=== PATIENT | female | born 1975 | race American Indian/Alaskan Native ===

== ENCOUNTER 2017-11-07 17:12 | Emergency (ER) | payer BC, OTHER ==
[2017-11-07 17:12] VITALS: BMI 45.5
[2017-11-07 17:19] VITALS: BP 138/79; PULSE 100; RESP 18; TEMP 97.6; O2SAT 95
[2017-11-07 17:49] LABS: HCG,QUALITATIVE URINE NEGATIVE (NEGATIVE)
[2017-11-07 17:52] LABS: SQUAMOUS EPITHIAL 21 /hpf (0-5); URINE BILIRUBIN NEGATIVE (NEGATIVE); URINE BLOOD NEGATIVE (NEGATIVE); URINE CLARITY Hazy (Clear); URINE GLUCOSE (UA) NORMAL (Normal); URINE LEUKOCYTE ESTERASE 3+ Leu/uL (Negative); URINE PROTEIN 2+ mg/dL (NEGATIVE); URINE UROBILINOGEN NORMAL mg/dL (0.2-1.0)
[2017-11-07 17:58] LABS: URINE BACTERIA FEW (<OCC); URINE COLOR YELLOW (YELLOW)
--- NOTE | 2017-11-07 18:12 | C.PDOC ---
History Of Present Illness 42 year old female presents to the ED complaining of left flank pain associated with dysuria for 2 days. Patient also describes having cloudy urine. Took over- the-counter urine relief pills with slight improvement. Denies any fever, vaginal discharge, or vomiting. Time Seen by Provider: 11/07/17 17:22 Chief Complaint (Nursing): Female Genitourinary History Per: Patient History/Exam Limitations: no limitations Onset/Duration Of Symptoms: Days (x2) Current Symptoms Are (Timing): Still Present Associated Symptoms: Urinary Symptoms Past Medical History Reviewed: Historical Data, Nursing Documentation, Vital Signs Vital Signs: Last Vital Signs Temp 97.6 F 11/07/17 17:17 Pulse 100 H 11/07/17 17:17 Resp 18 11/07/17 17:17 BP 138/79 11/07/17 17:17 Pulse Ox 95 11/07/17 18:12 - Medical History PMH: Asthma, HTN Denies: Chronic Kidney Disease Surgical History: - [facility] Procedures D & C POST DELIVERY (11/20/14) Family History: States: Unknown Family Hx - Social History Hx Alcohol Use: Yes Hx Substance Use: No Review Of Systems Constitutional: Negative for: Fever Gastrointestinal: Positive for: Other (flank pain). Negative for: Vomiting Genitourinary: Positive for: Dysuria, Other (cloudy urine). Negative for: Hematuria, Vaginal Discharge Physical Exam - Physical Exam Appears: Well, Non-toxic, No Acute Distress Skin: Warm, Dry, No Rash Head: Atraumatic, Normacephalic Eye(s): bilateral: Normal Inspection Oral Mucosa: Moist Neck: Normal ROM Chest: Symmetrical Cardiovascular: Rhythm Regular Respiratory: Normal Breath Sounds, No Rales, No Rhonchi, No Wheezing Gastrointestinal/Abdominal: Bowel Sounds (active), Soft, No Tenderness, No Guarding Back: No CVA Tenderness, No Vertebral Tenderness Extremity: Bilateral: Atraumatic, Normal ROM Neurological/Psych: Oriented x3, Normal Speech ED Course And Treatment O2 Sat by Pulse Oximetry: 95 (RA) Pulse Ox Interpretation: Normal Medical Decision Making Medical Decision Making: Time: 17:22 Plan: * Urine preg * Urinalysis * Urine culture 18:09 Urine shows (+) bacteria. Patient given initial dose of Cipro, 500 mg PO in the ED. Patient is stable for discharge home. Counseled regarding diagnosis and provided with prescription for antibiotics. Disposition Counseled Patient/Family Regarding: Studies Performed, Diagnosis, Need For Followup, Rx Given - Disposition Disposition: HOME/ ROUTINE Disposition Time: 18:09 Condition: STABLE Additional Instructions: Take antibiotic twice daily and be sure to finish taking all of antibiotic. Drink plenty of fluids. If urine culture was performed, call back for results in 2-3 days for results to confirm antibiotic is treating UTI well. Prescriptions: Ciprofloxacin [Cipro] 1 tab PO BID #9 tab Instructions: Urinary Tract Infections in Adults Forms: Work/School/Gym Excuse, [facility] (Icelandic) - POA Present On Arrival: None - Clinical Impression Clinical Impression: UTI (urinary tract infection) - PA / DIRECTOR PEDIATRIC / Resident Statement MD/DO has reviewed & agrees with the documentation as recorded. - Scribe Statement The provider has reviewed the documentation as recorded by the Scribe (Tonia Vera) All medical record entries made by the Scribe were at my direction and personally dictated by me. I have reviewed the chart and agree that the record accurately reflects my personal performance of the history, physical exam, medical decision making, and the department course for this patient. I have also personally directed, reviewed, and agree with the discharge instructions and disposition.
== END 2017-11-07 18:40 | disposition home or self-care (01) ==
LOC: C.ER 17:12
DX: N39.0 Urinary tract infection, site not specified (principal); I10 Essential (primary) hypertension

== ENCOUNTER 2018-09-06 16:38 | Emergency (ER) | payer BC, OTHER ==
[2018-09-06 16:38] VITALS: BMI 45.5
[2018-09-06 16:58] VITALS: O2SAT 99
--- NOTE | 2018-09-06 17:23 | C.PDOC ---
History Of Present Illness 43 year old female presents to the emergency department with complaints of left- sided abdominal pain for the last two days with gradual onset, which she reports is worse when walking upright but is improved upon sitting. Patient denies nausea, vomiting, diarrhea, and constipation. Patient reports frequent belching, but otherwise reports a normal appetite as she tolerated PO today. Patient denies urinary symptoms, fever, chills. She was evaluated by her PMD Dr. Mcgowan earlier today who recommended her to come to ED for further evaluation. Patient has a history of hypertension and asthma, a surgical history of carpal tunnel release and cataract surgery, and denies smoking, drinking, and drug use in her social history. Patient's family history is positive for stroke, diabetes, and hypercholesterolemia. Time Seen by Provider: 09/06/18 17:16 Chief Complaint (Nursing): Abdominal Pain History Per: Patient History/Exam Limitations: no limitations Onset/Duration Of Symptoms: Days (2) Current Symptoms Are (Timing): Still Present Location Of Pain/Discomfort: Other (left-sided) Quality Of Discomfort: "Pain" Associated Symptoms: denies: Fever, Chills, Nausea, Vomiting, Diarrhea, Constipation, Urinary Symptoms Exacerbating Factors: Upright Position (walking) Alleviating Factors: Other (sitting) Past Medical History Reviewed: Historical Data, Nursing Documentation, Vital Signs Vital Signs: Last Vital Signs Temp 98.5 F 09/06/18 16:54 Pulse 98 H 09/06/18 16:54 Resp 18 09/06/18 16:54 BP 125/77 09/06/18 16:54 Pulse Ox 99 09/06/18 16:54 - Medical History PMH: Asthma, HTN Denies: Chronic Kidney Disease Surgical History: Other Surgeries: Carpal tunnel release, cataract surgery. - [facility] Procedures D & C POST DELIVERY (11/20/14) Family History: States: Stroke, Diabetes, Other Other Family History: hypercholesterolemia - Social History Hx Alcohol Use: Yes Hx Substance Use: No - Immunization History Hx Tetanus Toxoid Vaccination: No Hx Influenza Vaccination: Yes Hx Pneumococcal Vaccination: No Review Of Systems Except As Marked, All Systems Reviewed And Found Negative. Constitutional: Negative for: Fever, Chills Gastrointestinal: Positive for: Abdominal Pain. Negative for: Nausea, Vomiting, Diarrhea, Constipation Genitourinary: Negative for: Dysuria, Frequency, Incontinence Physical Exam - Physical Exam Appears: Non-toxic, In Acute Distress (mild painful distress) Skin: Warm, Dry Head: Atraumatic, Normacephalic Eye(s): bilateral: PERRL, EOMI Oral Mucosa: Moist Lips: Normal Appearing Neck: Normal ROM, Trachea Midline Chest: Symmetrical Cardiovascular: Rhythm Regular, No Murmur Respiratory: Normal Breath Sounds, No Accessory Muscle Use Gastrointestinal/Abdominal: Soft, Tenderness (LLQ), No Mass, No Distention, No Guarding, No Rebound Back: Normal Inspection, No CVA Tenderness Extremity: Normal ROM, No Deformity Neurological/Psych: Oriented x3, Normal Motor, Normal Sensation ED Course And Treatment - Laboratory Results Result Diagrams: 09/06/18 18:28 09/06/18 18:28 O2 Sat by Pulse Oximetry: 99 (RA) Pulse Ox Interpretation: Normal - CT Scan/US CT A/P Other Rad Studies (CT/US): Read By Radiologist, Radiology Report Reviewed CT/US Interpretation: EXAM: CT Abdomen and Pelvis with IV contrast. CLINICAL HISTORY: LLQ PAIN. TECHNIQUE: Axial computed tomography images of the abdomen and pelvis with oral and intravenous contrast. 0.00 mGy-cm. CONTRAST: With; OMNI 240 &; OMNI 240. COMPARISON: None provided. FINDINGS: LUNG BASES: The lung bases appear clear. No pleural effusions are seen. LIVER: Unremarkable. GALLBLADDER AND BILE DUCTS: The gallbladder appears within normal limits. No radioopaque gallstones are seen. No biliary ductal dilatation is evident. PANCREAS: Unremarkable. SPLEEN: Unremarkable. ADRENAL GLANDS: Unremarkable. KIDNEYS, URETERS, AND BLADDER: The kidneys appear within normal limits. There is no hydronephrosis or hydroureter. No urinary calculi are seen. STOMACH AND BOWEL: Note is made of inflammatory stranding surrounding trapped fat structure adjacent to the proximal sigmoid most consistent with epiploic appendagitis. There are no diverticula noted. The small and large bowel are unremarkable. APPENDIX: No evidence of acute appendicitis on CT examination. PERITONEUM: No free fluid. No free air. LYMPH NODES: No lymphadenopathy is evident. REPRODUCTIVE: 3 cm anterior fundal fibroid is seen. Normal ovaries are unremarkable. VASCULATURE: No evidence of abdominal aortic aneurysm. BONES: No aggressive appearing osseous lesion. No acute osseous pathology evident. IMPRESSION: 1. Epiploic appendagitis adjacent to the proximal sigmoid colon. 2. Fibroid uterus. Medical Decision Making Medical Decision Making: Plan: CT Abdomen and Pelvis Chemistry Bloodwork Pepcid 20mg IVP NaCl IV Fluids Toradol 15mg IVP HCG Qualitative Urine Urinalysis Impression: LLQ Abdominal Pain Differential Diagnoses: Colitis, Diverticulitis, Enteritis, Cystitis. Disposition Discussed With Dr.: Angela Mcgowan Counseled Patient/Family Regarding: Studies Performed, Diagnosis - Disposition Referrals: Angela Mcgowan MD [Staff Provider] - Disposition: HOME/ ROUTINE Disposition Time: 21:50 Condition: STABLE Additional Instructions: Epiploic appandigitis is when a piece of fatty tissue on your colon gets inflamed. It is not a serious condition but can cause pain. Please rest and stay well hydrated until the inflammation improved. Followup with Dr Mcgowan early next week and continue all your regular medications as prescribed. Prescriptions: RX: Ibuprofen [Motrin Tab] 600 mg PO Q8 PRN #30 tab PRN Reason: Pain, Moderate (4-7) RX: traMADol [Ultram] 50 mg PO TID #15 tab Instructions: Acute Abdomen (Belly Pain), Adult (DC) Forms: Work Excuse - Clinical Impression Clinical Impression: Abdominal pain, Epiploic appendagitis - Scribe Statement The provider has reviewed the documentation as recorded by the Scribe (Venkata Dunne) Provider Attestation: All medical record entries made by the Scribe were at my direction and personally dictated by me. I have reviewed the chart and agree that the record accurately reflects my personal performance of the history, physical exam, medical decision making, and the department course for this patient. I have also personally directed, reviewed, and agree with the discharge instructions and disposition.
[2018-09-06] MEDS ORDERED: Iohexol 240 (50 ml) PO STA (17:36)
[2018-09-06] MEDS ORDERED: Sodium Chloride 0.9% 1,000 ML IV SCH (17:45)
[2018-09-06 18:37] LABS: BASO # 0.1 K/uL (0.0-0.2); BASO % 0.6 % (0.0-2.0); EOS # 0.2 K/uL (0.0-0.7); EOS % 2.3 % (0.0-4.0); HEMOGLOBIN 13.1 g/dL (11.0-16.0); LYMPH # 2.3 K/uL (1.0-4.3); LYMPH % 26.8 % (20.0-40.0); MEAN CELL VOLUME 88.1 fL (81.0-99.0); MEAN CORPUSCULAR HEMOGLOBIN 29.8 pg (27.0-31.0); MEAN CORPUSCULAR HGB CONC 33.8 g/dL (33.0-37.0); MEAN PLATELET VOLUME 7.8 fL (7.2-11.7); MONO # 0.5 K/uL (0.0-0.8); NEUT # 5.6 K/uL (1.8-7.0); NEUT % 64.3 % (50.0-75.0); NRBC % 0.1 % (0.0-2.0); RBC 4.4 Mil/uL (3.80-5.20); RED CELL DISTRIBUTION WIDTH 13.4 % (11.5-14.5); WHITE BLOOD COUNT 8.7 K/uL (4.8-10.8)
[2018-09-06 18:47] LABS: ALB/GLOB RATIO 1.4 (1.0-2.1); ALBUMIN 4.1 g/dL (3.5-5.0); ALT/SGPT 30 U/L (9-52); AST/SGOT 16 U/L (14-36); BLOOD UREA NITROGEN 11 mg/dL (7-17); CALCIUM 8.8 mg/dl (8.6-10.4); GFR NON-AFRICAN AMERICAN > 60; LIPASE 75 U/L (23-300)
[2018-09-06] MEDS ORDERED: Potassium Chloride 20 mEq ER Tab PO STA (18:56)
[2018-09-06 18:57] LABS: INR 1.1; PROTHROMBIN TIME 11.9 SECONDS (9.7-12.2)
[2018-09-06] MEDS ORDERED: Iohexol 240 (50 ml) ONE (19:00)
[2018-09-06] MEDS ORDERED: Sodium Chloride 0.9% 1,000 ML ONE (19:00)
[2018-09-06 19:12] LABS: SQUAMOUS EPITHIAL 4 /hpf (0-5); URINE BACTERIA RARE (<OCC); URINE BILIRUBIN NEGATIVE (NEGATIVE); URINE BLOOD NEGATIVE (NEGATIVE); URINE CLARITY Clear (Clear); URINE COLOR Yellow (YELLOW); URINE GLUCOSE (UA) NORMAL (Normal); URINE LEUKOCYTE ESTERASE NEG Leu/uL (Negative); URINE PROTEIN NEGATIVE (NEGATIVE); URINE UROBILINOGEN NORMAL mg/dL (0.2-1.0)
[2018-09-06 19:15] LABS: HCG,QUALITATIVE URINE NEGATIVE (NEGATIVE)
[2018-09-06] MEDS ORDERED: Iohexol 300 100 ML IJ ONE (19:42)
[2018-09-06] MEDS ORDERED: Potassium Chloride 20 mEq ER Tab PO ONE (19:55)
[2018-09-06 21:16] VITALS: BP 131/69; PULSE 81; RESP 20; TEMP 97
--- NOTE | 2018-09-07 07:55 | CT ---
CT abdomen and pelvis HISTORY: Left lower quadrant abdominal pain. COMPARISON: None available. TECHNIQUE: Multiple contiguous axial images were performed through the abdomen and pelvis with the use of intravenous contrast. Subsequently, sagittal and coronal reformatted images were obtained. Findings: Lung bases are clear. No pleural or pericardial effusion. Mild fatty infiltration of the liver. Contracted gallbladder. Spleen is preserved. Adrenal glands are preserved. Pancreas is preserved. Upper abdominal bowel is preserved. Right kidney: 1.2 centimeter low-attenuation lesion in the upper pole of the right kidney demonstrating a Hounsfield unit attenuation of 11 suggestive for a cyst. Left Kidney: No calculi or hydronephrosis. Urinary bladder is preserved. Heterogeneous possible fibroid uterus and bilateral adnexa. Prominence of the left adnexa measuring up to 4.4 centimeters. Correlation with pelvic ultrasound may be helpful if clinically indicated. Evaluation of the lower abdominal bowel demonstrates a twisted epiploic appendage at the level of the proximal sigmoid colon best seen on series 3, image 113 measuring up to 3.4 centimeters with associated fat stranding in the mesenteric fat suggestive for a twisted acute epiploic appendagitis. Moderate fecal retention in the colon. Appendix is grossly preserved. Few shotty para-aortic and inguinal lymph nodes. Few shotty mesenteric lymph nodes. Degenerative changes in the spine and hips. Prominent posterior disc osteophyte complex at the L5-S1. Impression: Evaluation of the lower abdominal bowel demonstrates a twisted epiploic appendage at the level of the proximal sigmoid colon best seen on series 3, image 113 measuring up to 3.4 centimeters with associated fat stranding in the mesenteric fat suggestive for a twisted acute epiploic appendagitis. A preliminary report was generated at 9:39 p.m. on 09/06/[address] John Yan from [employer].
== END 2018-09-06 22:07 | disposition home or self-care (01) ==
LOC: C.ER 16:38 → EEVIPCON 16:38 → C.ER 22:07
DX: K63.89 Other specified diseases of intestine (principal); R10.32 Left lower quadrant pain
CPT/HCPCS: 74177; 80053; 81001; 83605; 83690; 84703; 85025; 85610; 85730; 96361; 96374; 96375; 99285; J1885; J7030; Q9966; Q9967

== ENCOUNTER 2018-09-24 10:30 | Inpatient (IN) | payer BC ==
[2018-09-24 10:30] VITALS: BMI 45.5
[2018-09-24] MEDS ORDERED: Sodium Chloride 0.9% 1,000 ML IV ONE (11:41)
[2018-09-24 11:56] LABS: BASO % 0.4 % (0.0-2.0); EOS # 0.3 K/uL (0.0-0.7); EOS % 2.8 % (0.0-4.0); HEMOGLOBIN 13.3 g/dL (11.0-16.0); LYMPH # 1.5 K/uL (1.0-4.3); LYMPH % 13.6 % (20.0-40.0); MEAN CELL VOLUME 89.2 fL (81.0-99.0); MEAN CORPUSCULAR HEMOGLOBIN 30.1 pg (27.0-31.0); MEAN CORPUSCULAR HGB CONC 33.8 g/dL (33.0-37.0); MONO # 0.6 K/uL (0.0-0.8); NEUT # 8.8 K/uL (1.8-7.0); NEUT % 78.2 % (50.0-75.0); RBC 4.41 Mil/uL (3.80-5.20); RED CELL DISTRIBUTION WIDTH 13.4 % (11.5-14.5); WHITE BLOOD COUNT 11.2 K/uL (4.8-10.8)
[2018-09-24 12:14] LABS: ALB/GLOB RATIO 1.5 (1.0-2.1); ALBUMIN 4.4 g/dL (3.5-5.0); ALT/SGPT 28 U/L (9-52); AST/SGOT 25 U/L (14-36); BLOOD UREA NITROGEN 8 mg/dL (7-17); CALCIUM 8.7 mg/dl (8.6-10.4); GFR NON-AFRICAN AMERICAN > 60; LIPASE 46 U/L (23-300)
[2018-09-24 12:45] LABS: SQUAMOUS EPITHIAL 1 /hpf (0-5); URINE BACTERIA RARE (<OCC); URINE BILIRUBIN NEGATIVE (NEGATIVE); URINE BLOOD NEGATIVE (NEGATIVE); URINE CLARITY Clear (Clear); URINE COLOR Straw (YELLOW); URINE GLUCOSE (UA) NORMAL (Normal); URINE LEUKOCYTE ESTERASE NEG Leu/uL (Negative); URINE PROTEIN NEGATIVE (NEGATIVE); URINE UROBILINOGEN NORMAL mg/dL (0.2-1.0)
--- NOTE | 2018-09-24 13:41 | C.PDOC ---
History Of Present Illness 43 y/o female presents to the ER complaining of intermittent right sided abdominal pain which has been present since yesterday. Patient describes the pain as aching and sharp. Patient reports that she has associated nausea and vomiting. She notes that she was evaluated for left sided abdominal pain in [place] [facility] last week. At the time, she had CT scan and she was diagnosed with colitis. She states that the current pain is different from her pain last week. Denies having back pain, diarrhea, dysuria, GI bleeding, fever, chills, and recent travel. Time Seen by Provider: 09/24/18 12:12 Chief Complaint (Nursing): Abdominal Pain History Per: Patient History/Exam Limitations: no limitations Onset/Duration Of Symptoms: Days Current Symptoms Are (Timing): Still Present Severity: Moderate Past Medical History Reviewed: Historical Data, Nursing Documentation, Vital Signs Vital Signs: Last Vital Signs Temp 98.0 F 09/24/18 11:06 Pulse 100 H 09/24/18 11:06 Resp 20 09/24/18 11:06 BP 147/76 09/24/18 11:06 Pulse Ox 93 L 09/24/18 11:06 - Medical History PMH: Asthma, HTN Denies: Chronic Kidney Disease Surgical History: - [facility] Procedures D & C POST DELIVERY (11/20/14) Family History: States: Stroke, Diabetes - Social History Hx Alcohol Use: Yes Hx Substance Use: No - Immunization History Hx Tetanus Toxoid Vaccination: No Hx Influenza Vaccination: Yes Hx Pneumococcal Vaccination: No Review Of Systems Except As Marked, All Systems Reviewed And Found Negative. Constitutional: Negative for: Fever, Chills Gastrointestinal: Positive for: Nausea, Vomiting, Abdominal Pain. Negative for: Diarrhea Physical Exam - Physical Exam Appears: Other (mild painful distress) Skin: Normal Color, Warm, Dry, No Rash Head: Atraumatic, Normacephalic Eye(s): bilateral: Normal Inspection, PERRL, EOMI Nose: Normal Oral Mucosa: Moist Neck: Normal ROM, Supple Chest: Symmetrical Cardiovascular: Rhythm Regular, No Friction Rub, No Murmur Respiratory: Normal Breath Sounds, No Rales, No Rhonchi, No Wheezing Gastrointestinal/Abdominal: Soft, Tenderness (RUQ tenderness), No Guarding, No Rebound Back: Normal Inspection, No CVA Tenderness Extremity: Normal ROM, No Tenderness, No Swelling Neurological/Psych: Oriented x3, Normal Speech, Normal Motor Gait: Steady ED Course And Treatment - Laboratory Results Result Diagrams: 09/24/18 11:52 09/24/18 11:52 Lab Results: Total Bilirubin 0.5 mg/dL (0.2-1.3) 09/24/18 11:52 AST 25 U/L (14-36) 09/24/18 11:52 ALT 28 U/L (9-52) 09/24/18 11:52 Alkaline Phosphatase 58 U/L (38-126) 09/24/18 11:52 Total Protein 7.3 g/dL (6.3-8.3) 09/24/18 11:52 Albumin 4.4 g/dL (3.5-5.0) 09/24/18 11:52 Globulin 2.9 gm/dL (2.2-3.9) 09/24/18 11:52 Albumin/Globulin Ratio 1.5 (1.0-2.1) 09/24/18 11:52 Lipase 46 U/L (23-300) 09/24/18 11:52 Urine Color Straw (YELLOW) 09/24/18 12:40 Urine Clarity Clear (Clear) 09/24/18 12:40 Urine pH 7.0 (5.0-8.0) 09/24/18 12:40 Ur Specific [place] 1.010 (1.003-1.030) 09/24/18 12:40 Urine Protein Negative mg/dL (NEGATIVE) 09/24/18 12:40 Urine Glucose (UA) Normal mg/dL (Normal) 09/24/18 12:40 Urine Ketones Negative mg/dL (NEGATIVE) 09/24/18 12:40 Urine Blood Negative (NEGATIVE) 09/24/18 12:40 Urine Nitrate Negative (NEGATIVE) 09/24/18 12:40 Urine Bilirubin Negative (NEGATIVE) 09/24/18 12:40 Urine Urobilinogen Normal mg/dL (0.2-1.0) 09/24/18 12:40 Ur Leukocyte Esterase Neg Helen/uL (Negative) 09/24/18 12:40 Urine WBC (Auto) < 1 /hpf (0-5) 09/24/18 12:40 Urine RBC (Auto) 2 /hpf (0-3) 09/24/18 12:40 Ur Squamous Epith Cells 1 /hpf (0-5) 09/24/18 12:40 Urine Bacteria Rare (<OCC) 09/24/18 12:40 O2 Sat by Pulse Oximetry: 96 (RA) Pulse Ox Interpretation: Normal Medical Decision Making Medical Decision Making: Old records reviewed, the patient was last seen in the ED for left sided abdominal pain, had negative CT scan and was discharged home. Plan: --Labs --UA --US- Abd --IV Fluids --Pepcid IV --Zofran IV --Toradol IV Patient continued to have abdominal pain, US has no cholecystectomy. CT scan of abd/pelvis ordered. Patient is NPO. Patient found to have appendicitis. The case was discussed with surgery resident representative government relations Dr. Baum who has evaluated the patient at bedside. Case was discussed with Dr. Mcgowan who agrees to admit the patient to his service, Disposition - Disposition Disposition: HOSPITALIZED Disposition Time: 17:45 Condition: STABLE Forms: [facility] (Mongolian) - POA Present On Arrival: None - Clinical Impression Clinical Impression: Acute appendicitis - PA / RUSSIAN RUBBER / Resident Statement MD/DO has reviewed & agrees with the documentation as recorded. - Scribe Statement The provider has reviewed the documentation as recorded by the Niecy Roman Provider Attestation All medical record entries made by the Ramonibe were at my direction and personally dictated by me. I have reviewed the chart and agree that the record accurately reflects my personal performance of the history, physical exam, medical decision making, and the department course for this patient. I have also personally directed, reviewed, and agree with the discharge instructions and disposition.
[2018-09-24] MEDS ORDERED: Iodixanol 320 MG/ML 100 ML BOTTLE IV ONE (16:19)
--- NOTE | 2018-09-24 17:14 | CT ---
Date of service: 09/24/2018 PROCEDURE: CT Abdomen and Pelvis with contrast HISTORY: RLQ abd pain, vomiting COMPARISON: CT abdomen and pelvis with contrast performed 09/06/18 TECHNIQUE: Contrast dose: 100 mL Visipaque 320 IV Radiation dose: Total exam DLP = 1167.27 mGy-cm. This CT exam was performed using one or more of the following dose reduction techniques: Automated exposure control, adjustment of the mA and/or kV according to patient size, and/or use of iterative reconstruction technique. FINDINGS: LOWER THORAX: No visible consolidation, pleural effusion, or pneumothorax. LIVER: Hypoattenuation of the liver compatible with hepatic steatosis. GALLBLADDER AND BILE DUCTS: Unremarkable. PANCREAS: Unremarkable. SPLEEN: Unremarkable. ADRENALS: Unremarkable. KIDNEYS AND URETERS: The kidneys enhance symmetrically. No hydronephrosis or obstructing calculus identified. Evidence of right renal scarring. Probable small right renal cysts. VASCULATURE: No aortic aneurysm. No atherosclerotic calcification or mural plaque present. BOWEL: Stomach is nondistended. Lack of oral contrast limits evaluation for bowel pathology. Bowel loops appear within normal limits of caliber without evidence of obstruction. Re-identified suspected of the pleura appendagitis as on prior study. APPENDIX: Interval development of dilated appendix with appendix measuring approximately 7 mm proximally and 12 mm at its distal tip. Associated inflammatory changes. Appendicolith present. Additional findings appear consistent with acute appendicitis. Correlate clinically. PERITONEUM: No significant free fluid. No definite free air. LYMPH NODES: Nonspecific sub cm scattered mesenteric lymph nodes. BLADDER: Unremarkable. REPRODUCTIVE: Heterogeneous appearance of the uterus may be related to fibroids. BONES: Degenerative changes. Posterior osteophyte at L5-S1. Vacuum disc phenomenon at L5-S1. OTHER FINDINGS: None. IMPRESSION: Interval development of dilated appendix with appendix measuring approximately 7 mm proximally and 12 mm at its distal tip. Associated inflammatory changes. Appendicolith present. Additional findings appear consistent with acute appendicitis. Correlate clinically. Evidence of epiploic appendagitis in the left lower quadrant re-identified. Additional incidental findings as above. Discussed with Jocelynn Montejo on 09/24/18 at 4:54 p.m.
--- NOTE | 2018-09-24 17:29 | CP.PCM.CON ---
History of Present Illness - History of Present Illness History of Present Illness: Surgery Consult Note for Dr. Palm 43 year old female, past medical history of HTN, Asthma, presents to the [facility] emergency department with new onset right upper and lower quadrant pain that started yesterday and progressively worsened today. Patient states she was at work when she noticed the pain. Denies any inciting factors. Described as a sharp, localized pain currently controlled with pain medication however at its worst rates at 8/10. Admits to subjected fever. Patient admits to NBNB vomiting and nausea today. Admits to diarrhea a few days ago that has since resolved with over the counter medication. Of note, patient was in the ED 2.5 weeks ago for left lower quadrant pain that has since resolved. EGD and colonoscopy done 06/2018 - polyp was removed, otherwise unremarkable. Last meal this morning PB&J. Denies chills, shortness of breath, chest pain, palpitations, headaches, dizziness, or urinary symptoms. PMH: See above PSH: Carpal tunnel surgery, x2, Cataract removal, Colonoscopy, EGD FH: Grandmother-Breast Ca, Grandfather-Prostate Ca SH: Denies tobacco and drugs, social drinker ALL: NKDA Meds: See MAR Review of Systems - Constitutional Constitutional: absent: Chills, Fever, Weakness - EENT Eyes: absent: Blurred Vision, Change in Vision Nose/Mouth/Throat: absent: Nasal Congestion, Nasal Discharge - Cardiovascular Cardiovascular: absent: Chest Pain, Dyspnea - Respiratory Respiratory: absent: Cough, Dyspnea - Gastrointestinal Gastrointestinal: Abdominal Pain, Diarrhea, Nausea, Vomiting - Genitourinary Genitourinary: absent: Change in Urinary Stream, Dysuria - Musculoskeletal Musculoskeletal: absent: Back Pain, Neck Pain - Integumentary Integumentary: absent: Bleeding Lesions, Changing Lesions - Neurological Neurological: absent: Confusion, Numbness - Psychiatric Psychiatric: absent: Anxiety, Depression Past Patient History - Past Medical History & Family History Past Medical History?: Yes - Past Social History Smoking Status: Never Smoked - CARDIAC Hx Hypertension: Yes - PULMONARY Hx Asthma: Yes - NEUROLOGICAL Hx Neurological Disorder: No - HEENT Hx HEENT Problems: Yes Hx Cataracts: Yes - RENAL Hx Chronic Kidney Disease: No - ENDOCRINE/METABOLIC Hx Endocrine Disorders: No - HEMATOLOGICAL/ONCOLOGICAL Hx Blood Disorders: Yes - INTEGUMENTARY Hx Dermatological Problems: No Hx Eczema: Yes - MUSCULOSKELETAL/RHEUMATOLOGICAL Hx Musculoskeletal Disorders: No - GASTROINTESTINAL Hx Gastrointestinal Disorders: No - GENITOURINARY/GYNECOLOGICAL Hx Genitourinary Disorders: No - PSYCHIATRIC Hx Substance Use: No - SURGICAL HISTORY Hx Surgeries: Yes Hx Section: Yes Hx Dilation and Curettage: Yes (x2) Hx Orthopedic Surgery: Yes (carpal tunnel avery-2015) Other/Comment: CARPAL TUNNEL RELEASE LEFT HAND. cataract removal avery eyes - ANESTHESIA Hx Anesthesia: Yes Hx Anesthesia Reactions: No Hx Malignant Hyperthermia: No Meds Allergies/Adverse Reactions: Allergies Allergy/AdvReac Type Severity Reaction Status Date / Time No Known Allergies Allergy Verified 09/24/18 11:09 Physical Exam - Constitutional Appears: Well, Non-toxic, No Acute Distress - Head Exam Head Exam: ATRAUMATIC, NORMAL INSPECTION, NORMOCEPHALIC - Eye Exam Eye Exam: EOMI - ENT Exam ENT Exam: Mucous Membranes Moist - Respiratory Exam Respiratory Exam: NORMAL BREATHING PATTERN. absent: Respiratory Distress - Cardiovascular Exam Cardiovascular Exam: REGULAR RHYTHM. absent: Tachycardia - GI/Abdominal Exam GI & Abdominal Exam: Normal Bowel Sounds, Soft, Tenderness. absent: Distended, Guarding, Rebound Additional comments: Referred pain to the umbilicus when palpating the RLQ - Neurological Exam Neurological exam: Alert, Oriented x3 - Psychiatric Exam Psychiatric exam: Normal Affect, Normal Mood - Skin Skin Exam: Dry, Intact, Normal Color, Warm Results - Vital Signs Recent Vital Signs: Last Vital Signs Temp 98.8 F 09/24/18 17:03 Pulse 92 H 09/24/18 17:03 Resp 18 09/24/18 17:03 BP 109/70 09/24/18 17:03 Pulse Ox 96 09/24/18 17:16 - Labs Result Diagrams: 09/24/18 11:52 09/24/18 11:52 Labs: Laboratory Results - last 24 hr 09/24/18 09/24/18 09/24/18 11:52 11:52 12:40 WBC 11.2 H RBC 4.41 Hgb 13.3 Hct 39.3 MCV 89.2 MCH 30.1 MCHC 33.8 RDW 13.4 Plt Count 283 MPV 8.0 Neut % (Auto) 78.2 H Lymph % (Auto) 13.6 L [place] % (Auto) 5.0 Eos % (Auto) 2.8 Baso % (Auto) 0.4 Neut # (Auto) 8.8 H Lymph # (Auto) 1.5 [place] # (Auto) 0.6 Eos # (Auto) 0.3 Baso # (Auto) 0.0 Sodium 137 Potassium 3.4 L Chloride 103 Carbon Dioxide 26 Anion Gap 13 BUN 8 Creatinine 0.6 L Est GFR ( Amer) > 60 Est GFR (Non-Af Amer) > 60 Random Glucose 120 H Calcium 8.7 Total Bilirubin 0.5 AST 25 ALT 28 Alkaline Phosphatase 58 Total Protein 7.3 Albumin 4.4 Globulin 2.9 Albumin/Globulin Ratio 1.5 Lipase 46 Urine Color Straw Urine Clarity Clear Urine pH 7.0 Ur Specific [place] 1.010 Urine Protein Negative Urine Glucose (UA) Normal Urine Ketones Negative Urine Blood Negative Urine Nitrate Negative Urine Bilirubin Negative Urine Urobilinogen Normal Ur Leukocyte Esterase Neg Urine WBC (Auto) < 1 Urine RBC (Auto) 2 Ur Squamous Epith Cells 1 Urine Bacteria Rare Assessment & Plan - Assessment and Plan (Free Text) Assessment: 43F w/ right lower quadrant pain for [address] Abd/Pel: dilated appendix with inflammatory changes and appendicolith Plan: NPO IVF IV Abx Antiemetics and analgesics Pre-op labs CXR EKG Type and Screen Proceed to OR tomorrow D/w Dr. Arpita Tovar PGY1
[2018-09-24] MEDS ORDERED: Morphine 4 MG/ML VIAL IVP PRN (17:33)
--- NOTE | 2018-09-24 18:09 | CP.PCM.HP ---
Past Patient History - Past Medical History & Family History Past Medical History?: Yes - Past Social History Smoking Status: Never Smoked - CARDIAC Hx Hypertension: Yes - PULMONARY Hx Asthma: Yes - NEUROLOGICAL Hx Neurological Disorder: No - HEENT Hx HEENT Problems: Yes Hx Cataracts: Yes - RENAL Hx Chronic Kidney Disease: No - ENDOCRINE/METABOLIC Hx Endocrine Disorders: No - HEMATOLOGICAL/ONCOLOGICAL Hx Blood Disorders: Yes - INTEGUMENTARY Hx Dermatological Problems: No Hx Eczema: Yes - MUSCULOSKELETAL/RHEUMATOLOGICAL Hx Musculoskeletal Disorders: No - GASTROINTESTINAL Hx Gastrointestinal Disorders: No - GENITOURINARY/GYNECOLOGICAL Hx Genitourinary Disorders: No - PSYCHIATRIC Hx Substance Use: No - SURGICAL HISTORY Hx Surgeries: Yes Hx Section: Yes Hx Dilation and Curettage: Yes (x2) Hx Orthopedic Surgery: Yes (carpal tunnel avery-2014) Other/Comment: CARPAL TUNNEL RELEASE LEFT HAND. cataract removal avery eyes - ANESTHESIA Hx Anesthesia: Yes Hx Anesthesia Reactions: No Hx Malignant Hyperthermia: No Meds Allergies/Adverse Reactions: Allergies Allergy/AdvReac Type Severity Reaction Status Date / Time No Known Allergies Allergy Verified 09/24/18 11:09 Results - Vital Signs Recent Vital Signs: Last Vital Signs Temp 98.8 F 09/24/18 17:03 Pulse 92 H 09/24/18 17:03 Resp 18 09/24/18 17:03 BP 109/70 09/24/18 17:03 Pulse Ox 96 09/24/18 17:47 - Labs Result Diagrams: 09/24/18 11:52 09/24/18 11:52 Labs: Laboratory Results - last 24 hr 09/24/18 09/24/18 09/24/18 11:52 11:52 12:40 WBC 11.2 H RBC 4.41 Hgb 13.3 Hct 39.3 MCV 89.2 MCH 30.1 MCHC 33.8 RDW 13.4 Plt Count 283 MPV 8.0 Neut % (Auto) 78.2 H Lymph % (Auto) 13.6 L [place] % (Auto) 5.0 Eos % (Auto) 2.8 Baso % (Auto) 0.4 Neut # (Auto) 8.8 H Lymph # (Auto) 1.5 [place] # (Auto) 0.6 Eos # (Auto) 0.3 Baso # (Auto) 0.0 Sodium 137 Potassium 3.4 L Chloride 103 Carbon Dioxide 26 Anion Gap 13 BUN 8 Creatinine 0.6 L Est GFR ( Amer) > 60 Est GFR (Non-Af Amer) > 60 Random Glucose 120 H Calcium 8.7 Total Bilirubin 0.5 AST 25 ALT 28 Alkaline Phosphatase 58 Total Protein 7.3 Albumin 4.4 Globulin 2.9 Albumin/Globulin Ratio 1.5 Lipase 46 Urine Color Straw Urine Clarity Clear Urine pH 7.0 Ur Specific [place] 1.010 Urine Protein Negative Urine Glucose (UA) Normal Urine Ketones Negative Urine Blood Negative Urine Nitrate Negative Urine Bilirubin Negative Urine Urobilinogen Normal Ur Leukocyte Esterase Neg Urine WBC (Auto) < 1 Urine RBC (Auto) 2 Ur Squamous Epith Cells 1 Urine Bacteria Rare
[2018-09-24] MEDS ORDERED: Piperacill/Tazo 2.25gm in Dex 2.25 GM/50 ML BAG IVPB SCH (18:15)
--- NOTE | 2018-09-24 18:17 | RAD ---
HISTORY: pre-op COMPARISON: None available. TECHNIQUE: Chest PA and lateral FINDINGS: Examination limited by habitus. LUNGS: No focal consolidation. Please note that chest x-ray has limited sensitivity for the detection of pulmonary masses. PLEURA: No significant pleural effusion identified. No definite pneumothorax . CARDIOVASCULAR: Heart size appears within normal limits. No atherosclerotic calcification present. OSSEOUS STRUCTURES: No acute osseous abnormality identified. VISUALIZED UPPER ABDOMEN: Unremarkable. OTHER FINDINGS: None. IMPRESSION: No focal consolidation.
[2018-09-24] MEDS: Lactated Ringer's 1,000 ML IV SCH (18:53)
[2018-09-24] MEDS ORDERED: Lactated Ringer's 1,000 ML ONE (18:58)
[2018-09-24] MEDS: Piperacill/Tazo 3.375gm in Dex 3.375 GM/50 ML BAG IVPB SCH ×2 (19:45→23:56)
[2018-09-25] MEDS: Lactated Ringer's 1,000 ML IV SCH ×5 (00:25→21:59)
[2018-09-25] MEDS: Albuterol-Ipratrop 3 mg / 0.5 (3 ml) UD INH SCH ×4 (02:38→13:20)
[2018-09-25] MEDS: Piperacill/Tazo 3.375gm in Dex 3.375 GM/50 ML BAG IVPB SCH ×3 (05:46→18:00)
[2018-09-25 07:25] LABS: HEMOGLOBIN 12.6 g/dL (11.0-16.0); MEAN CORPUSCULAR HEMOGLOBIN 30.5 pg (27.0-31.0); MEAN CORPUSCULAR HGB CONC 33.8 g/dL (33.0-37.0); MEAN PLATELET VOLUME 7.6 fL (7.2-11.7); RBC 4.13 Mil/uL (3.80-5.20); RED CELL DISTRIBUTION WIDTH 13.4 % (11.5-14.5); WHITE BLOOD COUNT 8.3 K/uL (4.8-10.8)
[2018-09-25] MEDS ORDERED: Bupivacaine 0.25% 20 ML INJ IJ ONE (07:33)
[2018-09-25] MEDS ORDERED: Lidocaine/Epinephrine 1% 1:100000 10 ML IJ ONE (07:33)
[2018-09-25 07:36] LABS: INR 1.2; PROTHROMBIN TIME 12.6 SECONDS (9.7-12.2)
[2018-09-25 07:48] LABS: ALB/GLOB RATIO 1.3 (1.0-2.1); ALBUMIN 3.8 g/dL (3.5-5.0); ALT/SGPT 34 U/L (9-52); AST/SGOT 24 U/L (14-36); BLOOD UREA NITROGEN 8 mg/dL (7-17); CALCIUM 8.7 mg/dl (8.6-10.4); GFR NON-AFRICAN AMERICAN > 60
[2018-09-25] MEDS ORDERED: Midazolam 2 MG/2 ML VIAL ONE (08:03)
[2018-09-25] MEDS ORDERED: Propofol 10 mg/ml Inj (20 ML) ONE ×2 (08:03→09:22)
[2018-09-25] MEDS ORDERED: Rocuronium 10 mg/ml (10 ml) ONE (08:34)
[2018-09-25] MEDS ORDERED: ePHEDrine 50 mg/ml Inj ONE (08:34)
[2018-09-25] MEDS ORDERED: Neostigmine 1:1000 (1 mg/ml) Inj ONE (08:34)
[2018-09-25] MEDS ORDERED: HYDROmorphone 0.5 mg/0.5 ml ISec IVP PRN ×2 (09:06→09:33)
[2018-09-25] MEDS ORDERED: Oxycodone/Acetaminophen 5/325 mg Tab PO PRN (09:34)
--- NOTE | 2018-09-25 09:34 | PCM.SURG1 ---
Surgeon's Initial Post Op Note - Surgeon's Notes Surgeon: Dr. Palm Student Support Services Director: Dr. Tovar Type of Anesthesia: General Endo, Local Anesthesia Administered By: Dr. Leon Pre-Operative Diagnosis: Acute appendicitis Operative Findings: see operative note Post-Operative Diagnosis: acute suppurative appendicitis Operation Performed: laparoscopic appendectomy Specimen/Specimens Removed: appendix Estimated Blood Loss: EBL {In ML}: 10 Blood Products Given: N/A Drains Used: No Drains Post-Op Condition: Good Date of Surgery/Procedure: 09/25/18 Time of Surgery/Procedure: 09:34
[2018-09-25] MEDS: Oxycodone/Acetaminophen 5/325 mg Tab PO PRN ×2 (14:32→20:06)
[2018-09-25 15:51] VITALS: RESP 20
--- NOTE | 2018-09-25 20:42 | OP ---
PROCEDURE DATE: 09/25/2018 PREOPERATIVE DIAGNOSES: 1. Acute appendicitis. 2. Abdominal pain and leukocytosis. 3. Morbid obesity. POSTOPERATIVE DIAGNOSES: 1. Acute suppurative appendicitis. 2. Intraabdominal periappendicular purulent collection. 3. Morbid obesity. PROCEDURES DONE: 1. Laparoscopic appendectomy. 2. Laparoscopic drainage of periappendicular purulent collection. SURGEON: Los Palm MD ASSISTANTS: Jung Tovar D.O.; ROBBIE Patricia ANESTHESIA: General endotracheal tube anesthesia. ESTIMATED BLOOD LOSS: Around 10 mL. DRAINS: None. PATHOLOGY: Appendix was sent to Pathology. COMPLICATIONS: None. INTRAOPERATIVE FINDINGS: The patient had acute suppurative appendicitis with periappendicular purulent collection. The patient had morbid obesity with very minimal peritoneal adhesion due to previous . DESCRIPTION OF PROCEDURE: On intraoperative steps, this 43-year-old female was diagnosed with acute appendicitis with leukocytosis. The patient was consented for laparoscopic appendectomy, possible open; brought to the OR, placed supine on the operating table. After induction of the anesthesia, the abdomen was prepped and draped in the usual sterile fashion. A supraumbilical transverse incision was made using open technique. Peritoneal cavity was entered. Pneumo was created. The 5-mm port was placed in the left upper quadrant and another 12 mm port was placed in the midline above umbilicus, and grasper and dissector were introduced. The appendix and cecum appeared to be in the right upper quadrant. The appendix was mobilized and the mesoappendix was resected. The periappendicular collection was drained, and the base of the appendix was resected with EMILY. Proper hemostasis was achieved. The suction irrigation of the periappendicular area, perihepatic area as well as the pelvis was done, and all the fluid was suctioned out. After proper hemostasis, all the ports were taken out under vision. Pneumo was deflated. Umbilical port site was closed in two layers, the fascia with 0 Vicryl interrupted sutures, skin with 4-0 Monocryl and dry sterile dressing was applied. The patient tolerated the procedure well. Count of instrument and gauze was correct. There was no apparent complication. The specimen was sent off the table for the pathology. The patient was extubated in the OR, sent to the postanesthesia care unit in stable condition. Los Palm MD [facility] # [id number]
[2018-09-26] MEDS: Piperacill/Tazo 3.375gm in Dex 3.375 GM/50 ML BAG IVPB SCH ×3 (00:08→11:10)
[2018-09-26] MEDS: Albuterol-Ipratrop 3 mg / 0.5 (3 ml) UD INH SCH ×3 (01:42→13:31)
[2018-09-26] MEDS: Oxycodone/Acetaminophen 5/325 mg Tab PO PRN ×2 (02:48→11:57)
[2018-09-26] MEDS: Lactated Ringer's 1,000 ML IV SCH (05:38)
[2018-09-26 09:03] VITALS: BP 138/86; PULSE 86; TEMP 98.2; O2SAT 96
[2018-09-26] MEDS ORDERED: Pneumococcal 23-Valent Vaccine IM ONE (10:00)
--- NOTE | 2018-09-26 11:08 | CP.PCM.PN ---
Subjective - Date & Time of Evaluation Date of Evaluation: 09/26/18 Time of Evaluation: 11:05 - Subjective Subjective: Surgery Note for Dr. Palm 43F seen and evaluated at bedside this morning. No acute events overnight. Pain controlled with medication. Tolerating diet. Passing gas, no bowel movement. Patient is voiding. Denies f/c, n/v/d, SOB, CP, or urinary symptoms. Objective - Vital Signs/Intake and Output Vital Signs (last 24 hours): Temp Pulse Resp BP Pulse Ox 98.2 F 86 20 138/86 96 09/26/18 09:01 09/26/18 09:01 09/26/18 09:01 09/26/18 09:01 09/26/18 09:01 Intake and Output: 09/26/18 09/26/18 06:59 18:59 Intake Total 1400 Balance 1400 - Medications Medications: Current Medications Albuterol/Ipratropium (Duoneb 3 Mg/0.5 Mg (3 Ml) Ud) 3 ml INH RQ6 [facility] Last Admin: 09/26/18 07:57 Dose: Not Given Hydromorphone HCl (Dilaudid) 0.5 mg IVP Q10M PRN PRN Reason: Pain, moderate (4-7) Lactated Ringer's (Lactated Ringer's) 1,000 mls @ 150 mls/hr IV .Q6H40M [facility] Last Admin: 09/26/18 05:38 Dose: 150 mls/hr Piperacillin Sod/Tazobactam Sod (Zosyn 3.375 Gm Iv Premix) 3.375 gm in 50 mls @ 200 mls/hr IVPB Q6H [facility]; Protocol Last Admin: 09/26/18 05:39 Dose: 200 mls/hr Lisinopril (Zestril) 10 mg PO DAILY [facility] Last Admin: 09/26/18 09:48 Dose: 10 mg Morphine Sulfate (Morphine) 4 mg IVP Q4 PRN PRN Reason: Pain, moderate (4-7) Last Admin: 09/25/18 00:07 Dose: 4 mg Ondansetron HCl (Zofran Inj) 4 mg IVP Q6H PRN PRN Reason: Nausea/Vomiting Oxycodone/Acetaminophen (Percocet 5/325 Mg Tab) 1 tab PO Q4H PRN PRN Reason: Pain, moderate (4-7) Stop: 09/28/18 09:35 Last Admin: 09/26/18 02:48 Dose: 1 tab Oxycodone/Acetaminophen (Percocet 5/325 Mg Tab) 2 tab PO Q4H PRN PRN Reason: Pain, severe (8-10) Stop: 09/28/18 09:35 Pantoprazole Sodium (Protonix Inj) 40 mg IVP DAILY ROSA ELENA Last Admin: 09/26/18 09:48 Dose: 40 mg - Labs Labs: 09/25/18 07:20 09/25/18 07:20 PT 12.6 SECONDS (9.7-12.2) H 09/25/18 07:20 INR 1.2 09/25/18 07:20 APTT 25 SECONDS (21-34) 09/25/18 07:20 - Constitutional Appears: Well, Non-toxic, No Acute Distress - Head Exam Head Exam: ATRAUMATIC, NORMAL INSPECTION, NORMOCEPHALIC - Eye Exam Eye Exam: EOMI - ENT Exam ENT Exam: Mucous Membranes Moist - Respiratory Exam Respiratory Exam: NORMAL BREATHING PATTERN. absent: Respiratory Distress - GI/Abdominal Exam GI & Abdominal Exam: Distended, Soft, Tenderness, Normal Bowel Sounds. absent: Guarding, Rebound Additional comments: dressings c/d/i - Neurological Exam Neurological Exam: Alert, Awake - Psychiatric Exam Psychiatric exam: Normal Affect, Normal Mood - Skin Skin Exam: Dry, Intact, Normal Color, Warm Assessment and Plan - Assessment and Plan (Free Text) Assessment: 43F s/p laparoscopic appendectomy POD1 Plan: Encourage ambulation and IS use Continue IV Abx Antiemetics and pain control Monitor diet tolerance and bowel function Cleared for discharge from surgical standpoint Will d/w Dr. Arpita Tovar PGY1
--- NOTE | 2018-09-26 12:01 | US ---
Date of service: 09/24/2018 HISTORY: RUQ abd pain, vomiting COMPARISON: None. TECHNIQUE: Sonographic evaluation of the right upper quadrant of the abdomen. FINDINGS: LIVER: Measures 19.0 cm in length. Hepatopedal blood flow. Fatty infiltration manifest ultrasonographically as increased echogenicity of the liver parenchyma. No mass. No intrahepatic bile duct dilatation. GALLBLADDER: Unremarkable. No gallstones. COMMON BILE DUCT: Measures 3.2 mm. No stones. No dilatation. PANCREAS: Unremarkable as visualized. No mass. No ductal dilatation. RIGHT KIDNEY: Measures 4.6 x 13.3 cm in length. Normal echogenicity. No calculus, mass, or hydronephrosis. AORTA: No aneurysmal dilatation. IVC: Unremarkable. OTHER FINDINGS: None . IMPRESSION: Hepatic steatosis without focal abnormality. Otherwise unremarkable study.
[2018-09-26 12:15] LABS: ALB/GLOB RATIO 1.3 (1.0-2.1); ALBUMIN 3.8 g/dL (3.5-5.0); ALT/SGPT 27 U/L (9-52); AST/SGOT 30 U/L (14-36); BLOOD UREA NITROGEN 9 mg/dL (7-17); CALCIUM 8.4 mg/dl (8.6-10.4); GFR NON-AFRICAN AMERICAN > 60
--- NOTE | 2018-09-26 12:40 | CP.PCM.DIS ---
Provider - Provider Date of Admission: 09/24/18 17:43 Attending physician: Angela Mcgowan MD Hospital Course - Lab Results Lab Results: Micro Results 09/24/18 22:04 Blood Blood Culture - Preliminary NO GROWTH AFTER 24 HOURS 09/24/18 22:04 Blood Blood Culture - Preliminary NO GROWTH AFTER 24 HOURS Most Recent Lab Values WBC 8.3 K/uL (4.8-10.8) 09/25/18 07:20 RBC 4.13 Mil/uL (3.80-5.20) 09/25/18 07:20 Hgb 12.6 g/dL (11.0-16.0) 09/25/18 07:20 Hct 37.1 % (34.0-47.0) 09/25/18 07:20 MCV 90.0 fL (81.0-99.0) 09/25/18 07:20 MCH 30.5 pg (27.0-31.0) 09/25/18 07:20 MCHC 33.8 g/dL (33.0-37.0) 09/25/18 07:20 RDW 13.4 % (11.5-14.5) 09/25/18 07:20 Plt Count 266 K/uL (130-400) 09/25/18 07:20 MPV 7.6 fL (7.2-11.7) 09/25/18 07:20 Neut % (Auto) 78.2 % (50.0-75.0) H 09/24/18 11:52 Lymph % (Auto) 13.6 % (20.0-40.0) L 09/24/18 11:52 [place] % (Auto) 5.0 % (0.0-10.0) 09/24/18 11:52 Eos % (Auto) 2.8 % (0.0-4.0) 09/24/18 11:52 Baso % (Auto) 0.4 % (0.0-2.0) 09/24/18 11:52 Neut # (Auto) 8.8 K/uL (1.8-7.0) H 09/24/18 11:52 Lymph # (Auto) 1.5 K/uL (1.0-4.3) 09/24/18 11:52 [place] # (Auto) 0.6 K/uL (0.0-0.8) 09/24/18 11:52 Eos # (Auto) 0.3 K/uL (0.0-0.7) 09/24/18 11:52 Baso # (Auto) 0.0 K/uL (0.0-0.2) 09/24/18 11:52 PT 12.6 SECONDS (9.7-12.2) H 09/25/18 07:20 INR 1.2 09/25/18 07:20 APTT 25 SECONDS (21-34) 09/25/18 07:20 Sodium 137 mmol/L (132-148) 09/26/18 11:31 Potassium 3.5 mmol/L (3.6-5.2) L 09/26/18 11:31 Chloride 99 mmol/L (98-107) 09/26/18 11:31 Carbon Dioxide 31 mmol/L (22-30) H 09/26/18 11:31 Anion Gap 11 (10-20) 09/26/18 11:31 BUN 9 mg/dL (7-17) 09/26/18 11:31 Creatinine 0.8 mg/dL (0.7-1.2) 09/26/18 11:31 Est GFR ( Amer) > 60 09/26/18 11:31 Est GFR (Non-Af Amer) > 60 09/26/18 11:31 Random Glucose 90 mg/dL (65-105) 09/26/18 11:31 Calcium 8.4 mg/dl (8.6-10.4) L 09/26/18 11:31 Phosphorus 4.3 mg/dL (2.5-4.5) 09/25/18 07:20 Magnesium 2.0 mg/dL (1.6-2.3) 09/25/18 07:20 Total Bilirubin 0.6 mg/dL (0.2-1.3) 09/26/18 11:31 AST 30 U/L (14-36) 09/26/18 11:31 ALT 27 U/L (9-52) 09/26/18 11:31 Alkaline Phosphatase 50 U/L (38-126) 09/26/18 11:31 Total Protein 6.7 g/dL (6.3-8.3) 09/26/18 11:31 Albumin 3.8 g/dL (3.5-5.0) 09/26/18 11:31 Globulin 2.9 gm/dL (2.2-3.9) 09/26/18 11:31 Albumin/Globulin Ratio 1.3 (1.0-2.1) 09/26/18 11:31 Lipase 46 U/L (23-300) 09/24/18 11:52 Urine Color Straw (YELLOW) 09/24/18 12:40 Urine Clarity Clear (Clear) 09/24/18 12:40 Urine pH 7.0 (5.0-8.0) 09/24/18 12:40 Ur Specific [place] 1.010 (1.003-1.030) 09/24/18 12:40 Urine Protein Negative mg/dL (NEGATIVE) 09/24/18 12:40 Urine Glucose (UA) Normal mg/dL (Normal) 09/24/18 12:40 Urine Ketones Negative mg/dL (NEGATIVE) 09/24/18 12:40 Urine Blood Negative (NEGATIVE) 09/24/18 12:40 Urine Nitrate Negative (NEGATIVE) 09/24/18 12:40 Urine Bilirubin Negative (NEGATIVE) 09/24/18 12:40 Urine Urobilinogen Normal mg/dL (0.2-1.0) 09/24/18 12:40 Ur Leukocyte Esterase Neg [place]/uL (Negative) 09/24/18 12:40 Urine WBC (Auto) < 1 /hpf (0-5) 09/24/18 12:40 Urine RBC (Auto) 2 /hpf (0-3) 09/24/18 12:40 Ur Squamous Epith Cells 1 /hpf (0-5) 09/24/18 12:40 Urine Bacteria Rare (<OCC) 09/24/18 12:40 Urine HCG, Qual Negative (NEGATIVE) 09/25/18 04:47 Blood Type A POSITIVE 09/25/18 07:20 Antibody Screen Negative 09/25/18 07:20 Discharge Exam - Head Exam Head Exam: ATRAUMATIC, NORMAL INSPECTION, NORMOCEPHALIC Discharge Plan - Discharge Medications Prescriptions: Docusate [Colace] 100 mg PO BID #30 cap levoFLOXacin [Levaquin] 500 mg PO DAILY #7 tab - Follow Up Plan Condition: STABLE Disposition: HOME/ ROUTINE
== END 2018-09-26 14:22 | disposition home or self-care (01) | DRG 343 ==
LOC: C.ER 10:30 → C.9E 17:43 → C.3T 18:53
PROVIDERS: ADMIT Internal Medicine; ATTEND Internal Medicine
PROC: 0D9J4ZX Drainage of Appendix, Percutaneous Endoscopic Approach, Diagnostic (ICD-10-PCS; 2018-09-25)
PROC: 0DTJ4ZZ Resection of Appendix, Percutaneous Endoscopic Approach (ICD-10-PCS; principal; 2018-09-25 07:30)
DX: K35.80 Unspecified acute appendicitis (principal); E66.01 Morbid (severe) obesity due to excess calories; I10 Essential (primary) hypertension; J45.909 Unspecified asthma, uncomplicated; Z80.3 Family history of malignant neoplasm of breast; D72.829 Elevated white blood cell count, unspecified

== ENCOUNTER 2018-11-12 11:13 | Emergency (ER) | payer BC ==
[2018-11-12 11:23] VITALS: BMI 44.4
[2018-11-12 11:27] VITALS: TEMP 98.5
--- NOTE | 2018-11-12 13:15 | C.PDOC ---
History Of Present Illness 43 year old female presents to ED with complaint of pain to the right knee for the past 4-5 days. Patient states that the pain was initially in the back of the right knee, but then extended to the right calf. Patient states that the pain is worse with walking and that the pain feels tight. She denies trauma, fever, rash , numbness, and weakness. Time Seen by Provider: 11/12/18 11:38 Chief Complaint (Nursing): Lower Extremity Problem/Injury History Per: Patient History/Exam Limitations: no limitations Onset/Duration Of Symptoms: Days (4-5) Current Symptoms Are (Timing): Still Present Past Medical History Reviewed: Historical Data, Nursing Documentation, Vital Signs Vital Signs: Last Vital Signs Temp 98.5 F 11/12/18 11:23 Pulse 91 H 11/12/18 11:23 Resp 20 11/12/18 11:23 BP 150/83 11/12/18 11:23 Pulse Ox 95 11/12/18 11:23 - Medical History PMH: Asthma, HTN Denies: Chronic Kidney Disease Surgical History: Appendectomy (09/2018), Endoscopy, - [facility] Procedures D & C POST DELIVERY (11/20/14) DRAINAGE OF APPENDIX, PERC ENDO APPROACH, DIAGN (09/24/18) RESECTION OF APPENDIX, PERCUTANEOUS ENDOSCOPIC APPROACH (09/24/18) Family History: States: Unknown Family Hx, Stroke, Diabetes - Social History Hx Alcohol Use: No Hx Substance Use: No - Immunization History Hx Tetanus Toxoid Vaccination: No Hx Influenza Vaccination: Yes (2017) Hx Pneumococcal Vaccination: No Review Of Systems Constitutional: Negative for: Fever, Chills, Weakness Musculoskeletal: Positive for: Leg Pain (back of the right knee, right calf) Skin: Negative for: Rash Neurological: Negative for: Weakness, Numbness, Dizziness Physical Exam - Physical Exam Appears: Well, Non-toxic, No Acute Distress Skin: Normal Color, Warm, Dry, No Rash Head: Atraumatic, Normacephalic Eye(s): bilateral: Normal Inspection, PERRL, EOMI Oral Mucosa: Moist Throat: No Erythema, No Exudate Neck: Normal ROM, Supple Chest: Symmetrical, No Deformity Cardiovascular: Rhythm Regular, No Friction Rub, No Murmur Respiratory: No Accessory Muscle Use, No Rales, No Rhonchi, No Wheezing Gastrointestinal/Abdominal: Soft, No Tenderness Back: Normal Inspection, No CVA Tenderness, No Vertebral Tenderness, No Paraspinal Tenderness Extremity: Normal ROM (right knee), Tenderness (posterior right knee and upper right calf), Pedal Edema (trace), Capillary Refill (< 2 sec) Pulses: Left Dorsalis Pedis: Normal, Right Dorsalis Pedis: Normal Neurological/Psych: Oriented x3, Normal Speech, Normal Cognition, Normal Motor, Normal Sensation Gait: Steady ED Course And Treatment O2 Sat by Pulse Oximetry: 95 (in RA) Pulse Ox Interpretation: Normal Medical Decision Making Medical Decision Making: Plan: Venous doppler of the left lower extremity and is negative. On re-exam, the patient is ambulatory in the ED with steady gait. Disposition - Disposition Referrals: Yayo Frey MD [Staff Provider] - Ricardo Bowman MD [Staff Provider] - Disposition: HOME/ ROUTINE Disposition Time: 13:35 Condition: GOOD Additional Instructions: Follow up with the medical doctor within 1-2 days. Return if worsened. Prescriptions: Naproxen [Naprosyn] 500 mg PO BID #20 tab Instructions: Muscle Strain, Meniscal Tear (DC) Forms: [facility] (Q[place]ari), Work Excuse - Clinical Impression Clinical Impression: Muscle strain - PA / GIVING OFFICER / Resident Statement MD/DO has reviewed & agrees with the documentation as recorded. (Isidra Calvillo) - Scribe Statement The provider has reviewed the documentation as recorded by the Scribe (Isidra Calvillo) All medical record entries made by the Scribe were at my direction and personally dictated by me. I have reviewed the chart and agree that the record accurately reflects my personal performance of the history, physical exam, medical decision making, and the department course for this patient. I have also personally directed, reviewed, and agree with the discharge instructions and disposition.
[2018-11-12] MEDS ORDERED: Naproxen 550 mg Tab PO STA (13:39)
[2018-11-12] MEDS ORDERED: Naproxen 550 mg Tab PO ONE (13:46)
[2018-11-12 13:47] VITALS: BP 118/76; PULSE 84; RESP 16; O2SAT 96
--- NOTE | 2018-11-13 11:52 | VASCLAB ---
Date of service: 11/12/2018 PROCEDURE: Right Lower Extremity Venous Duplex Exam. HISTORY: right calf pain PRIORS: None. TECHNIQUE: Right common femoral, femoral, popliteal and posterior tibial, peroneal and great saphenous veins were evaluated. Flow was assessed with color Doppler, compressibility, assessment of phasic flow and augmentation response. Report prepared by ONEIDA Nunez, RVT FINDINGS: RIGHT: 1. Common Femoral Vein: 1.1. Compressibility - Fully compressible: Thrombus - None: Flow - Phasic: Augmentation -Normal: Reflux - None. 2. Femoral Vein: 2.1. Compressibility - Fully compressible: Thrombus - None: Flow - Phasic: Augmentation -Normal: Reflux - None. 3. Popliteal Vein: 3.1. Compressibility - Fully compressible: Thrombus - None: Flow - Phasic: Augmentation -Normal: Reflux - None. 4. Posterior Tibial Vein: 4.1. Compressibility - Fully compressible: Thrombus - None: Flow - Phasic: Augmentation -Normal: Reflux - None. 5. Peroneal Vein: 5.1. Compressibility - Fully compressible: Thrombus - None: Flow - Phasic: Augmentation -Normal: Reflux - None. 6. Great Saphenous Vein: 6.1. Compressibility - Fully compressible: Thrombus -None: Flow - Phasic: Augmentation - Normal: Reflux - None. OTHER FINDINGS: IMPRESSION: No evidence of deep or superficial vein thrombosis of the right lower extremity with excellent venous flow. Normal valve function noted of the right side. Normal venous flow noted in the left common femoral vein.
== END 2018-11-12 13:47 | disposition home or self-care (01) ==
LOC: C.ER 11:13
DX: S86.911A Strain of unspecified muscle(s) and tendon(s) at lower leg level, right leg, initial encounter (principal); X58.XXXA Exposure to other specified factors, initial encounter